=== PATIENT | female | born 1980 | race African-American/Black ===

== ENCOUNTER 2018-07-21 14:17 | Emergency (ER) | payer MEDICAID ==
[~2018-07-21] VITALS: Ht 165.1 cm; Wt 86.2 kg
[2018-07-21 14:27] VITALS: BP 105/75
[2018-07-21] MEDS ORDERED: methylPREDNISolone SOD SUCC 125 MG/2 ML VL IM ONE (15:45)
[2018-07-21] MEDS ORDERED: ALBUTEROL SULF 2.5 MG/0.5ML(0.5%) NEB SOLN NEB ONE (15:45)
[2018-07-21] MEDS ORDERED: IPRATROPIUM BROM 0.5 MG/2.5ML INH SOL NEB ONE (15:45)
== END 2018-07-21 16:30 | disposition home or self-care (01) ==
LOC: ER 14:17
DX: S61.011A Laceration without foreign body of right thumb without damage to nail, initial encounter (principal); R06.2 Wheezing; J45.909 Unspecified asthma, uncomplicated; J01.90 Acute sinusitis, unspecified; X58.XXXA Exposure to other specified factors, initial encounter; Y93.89 Activity, other specified; Y99.8 Other external cause status; Y92.89 Other specified places as the place of occurrence of the external cause
CPT/HCPCS: 71046; 94640; 96372; 99283; J2930; J7611; J7644

== ENCOUNTER 2018-08-03 23:45 | Emergency (ER) | payer MEDICAID ==
[~2018-08-03] VITALS: Ht 165.1 cm; Wt 86.2 kg
[2018-08-04 00:13] VITALS: BP 102/59
[2018-08-04] MEDS ORDERED: cefTRIAXone W LIDOCAINE 1 GM IM IM ONE (02:15)
[2018-08-04] MEDS ORDERED: cefTRIAXone SOD 1,000 MG VL ONE (02:57)
== END 2018-08-04 04:42 | disposition home or self-care (01) ==
LOC: ER 23:45
DX: S80.861A Insect bite (nonvenomous), right lower leg, initial encounter (principal); W57.XXXA Bitten or stung by nonvenomous insect and other nonvenomous arthropods, initial encounter; Y93.89 Activity, other specified; Y99.8 Other external cause status; Y92.89 Other specified places as the place of occurrence of the external cause
CPT/HCPCS: 93971; 96372; 99284; J0696

== ENCOUNTER 2019-02-17 03:32 | Emergency (ER) | payer OTHER, MEDICAID ==
[~2019-02-17] VITALS: Ht 165.1 cm; Wt 88.5 kg
[2019-02-17 06:42] VITALS: BP 93/64
[2019-02-17] MEDS ORDERED: KETOROLAC TROMETH 60MG/2ML VIAL IM ONE (07:15)
== END 2019-02-17 10:08 | disposition home or self-care (01) ==
LOC: ER 03:32
DX: M25.522 Pain in left elbow (principal); H53.8 Other visual disturbances; J02.9 Acute pharyngitis, unspecified
CPT/HCPCS: 73080; 76881; 96372; 99284; J1885

== ENCOUNTER 2021-10-07 19:06 | Emergency (ER) | payer BC, MEDICAID, OTHER ==
[~2021-10-07] VITALS: Ht 165.1 cm; Wt 90.7 kg
[2021-10-07 19:47] VITALS: BP 100/69
[2021-10-07] MEDS ORDERED: SULF400T11 PO (20:30)
== END 2021-10-07 20:48 | disposition home or self-care (01) ==
LOC: ER 19:06
DX: N39.0 Urinary tract infection, site not specified (principal)

== ENCOUNTER 2025-03-29 23:28 | Emergency (ER) | payer OTHER ==
[~2025-03-29] VITALS: Ht 162.6 cm; Wt 77.6 kg
[~2025-03-29 23:28] MED LIST: SULF400T11 PO
[2025-03-29 23:29] VITALS: BP 154/72; PULSE 114; RESP 20; TEMP 97.6; O2SAT 98
[2025-03-30 02:23] LABS: Urine Protein, UAD Negative (Negative)
--- NOTE | 2025-03-30 02:29 | ED.PDOC ---
GI ASSESSMENT HPI Comments 45-year-old female with a history of anemia, and chronic back/neck presents to the ED with a chief complaint of left flank and left-sided abdominal pain with associated radiation to the lower back and nausea, vomiting. Patient states her pain started at approximately 11:00 p.m. last night and has since found no alleviating factors at this time. Patient denies any diarrhea, dysuria, urinary symptoms, headache, chest pain, or any other associated modifying or as her symptoms at this time. Chief Complaint: Abdominal Pain Time Seen by MD: 02:25 Primary Care Provider: MICHELLEK Reviewed Notes: Nurses Notes, Medications, Allergies Allergies: Coded Allergies: NO KNOWN ALLERGIES (Unverified , 07/21/18) Home Meds Active Scripts Dicyclomine Hcl (BENTYL CAPSULE) 10 Mg Cp, 2 CAP PO Q6HP PRN, #30 CAP 11 Refills Prn abdominal pain Prov:LAUREL BUSH MD 03/30/25 Ibuprofen Micronized (Ibuprofen) 800 Mg Tab, 800 MG PO Q8HP PRN, #30 TAB Prn pain. Take with food. Prov:LAUREL BUSH MD 03/30/25 Ondansetron Odt 4MG Tab (ZOFRAN PO) 4 Mg Tb, 4 MG PO TID PRN, #30 TAB Prn nausea/vomiting ODT TAB-DISSOLVE IN MOUTH, THEN SWALLOW Prov:LAUREL BUSH MD 03/30/25 Sulfamethoxazole-Trimethoprim (Bactrim) 1 Tab Tab, 1 TAB PO BID for 3 Days, #6 TAB 0 Refills Prov:DANIELE KELLEY 10/07/21 Information Source: Patient Mode of Arrival: Ambulatory Timing: Hours Duration: Since onset, Hours Prehospital treatment: None Quality: Aching Vomitus: Watery Stool: Normal Severity: Moderate Recent: None Recent Hx of: None Pain Location: LLQ Modifying Factors: Food Associated sign and symptoms: Nausea, Vomiting, Abdominal Pain Past Medical History PAST MEDICAL HISTORY: Anemia Past Medical History (Other): Chronic pain Surgical History: , Hernia 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 Moist mucous membranes.) Neck: Full Range of Motion, Normal Inspection Respiratory: Lungs Clear, No Accessory Muscle Use, No Respiratory Distress, Normal Breath Sounds Cardiovascular: No Edema, No JVD, Regular Rate/Rhythm Breast Exam: Deferred Gastrointestinal: LLQ, Soft, Tenderness Genitalia: Deferred Pelvic: Deferred Rectal: Deferred Extremities: Normal inspection, Normal range of motion, Non-tender, No pedal edema Neurologic: Alert (Oriented x4), Normal Affect, Normal Mood, Other (Ambulatory) Cerebellar Function: NOT DONE Reflexes: NOT DONE Skin: Dry, Normal Color, Warm Lymphatic: NOT DONE Was a procedure done? Was a procedure done?: No GI differential Dx Differential Diagnosis: Diverticular disease, Gastritis/PUD, Gastroenteritis, Hernia, Inflammatory BD, Urinary Obstruction, UTI, Urolithiasis, Dehydration, Electrolyte Imbalance, Food Poisoning, Bacterial, Viral, Kidney Stone X-Ray, Labs, Meds, VS Vital Signs Date Time Temp Pulse Resp B/P (MAP) Pulse Ox O2 Delivery O2 Flow Rate FiO2 03/29/25 23:29 97.6 114 20 154/72 98 97.6 Lab Test 03/30/25 02:19 03/30/25 02:16 Range/Units White Blood Count 4.1 L 4.4-10.8 10^3/uL Red Blood Count 4.35 4.0-5.20 10^6/uL Hemoglobin 14.5 12.2-16.2 g/dL Hematocrit 42.1 36.0-46.0 % Mean Corpuscular Volume 96.8 80.0-100.0 fL Mean Corpuscular Hemoglobin 33.3 H 28.0-32.0 pg Mean Corpuscular Hemoglobin Concent 34.4 32.0-36.0 g/dL Red Cell Distribution Width 13.6 11.8-14.3 % Platelet Count 198 140-450 10^3/uL Mean Platelet Volume 8.8 6.9-10.8 fL Neutrophils (%) (Auto) 45.0 37.0-80.0 % Lymphocytes (%) (Auto) 42.1 10.0-50.0 % Monocytes (%) (Auto) 9.7 0.0-12.0 % Eosinophils (%) (Auto) 2.4 0.0-7.0 % Basophils (%) (Auto) 0.8 0.0-2.0 % Neutrophils # (Auto) 1.8 1.6-8.6 10 ^3/uL Lymphocytes # (Auto) 1.7 0.4-5.4 10 ^3/uL Monocytes # (Auto) 0.4 0-1.3 10 ^3/uL Eosinophils # (Auto) 0.1 0-0.8 10 ^3/uL Basophils # (Auto) 0 0-0.2 10 ^3/uL Nucleated Red Blood Cells 0.0 % Sodium Level 140 136-145 mmol/L Potassium Level 3.9 3.5-5.1 mmol/L Chloride Level 105 98-107 mmol/L Carbon Dioxide Level 28 20-31 mmol/L Anion Gap 7 5-15 Blood Urea Nitrogen 10 9-23 mg/dL Creatinine 0.74 0.550-1.02 mg/dL Glomerular Filtration Rate Calc 103 >90 mL/min BUN/Creatinine Ratio 13.5 10.0-20.0 Serum Glucose 106 74-106 mg/dL Calcium Level 9.2 8.7-10.4 mg/dL Magnesium Level 1.8 1.6-2.6 mg/dL Urine Color Light-yellow Yellow Urine Clarity Clear Clear Urine pH 6.5 5.0-9.0 Urine Specific [place] 1.020 1.001-1.035 Urine Protein Negative Negative Urine Ketones Negative Negative Urine Blood Negative Negative /uL Urine Nitrite Negative Negative Urine Bilirubin Negative Negative Urine Urobilinogen 2 H Negative mg/dL Urine Leukocyte Esterase Negative Negative /uL Urine RBC 2 0 - 4 /hpf Urine Microscopic WBC < 1 0-5 /HPF Urine Squamous Epithelial Cells Few <5 /hpf Urine Bacteria None seen None Seen /hpf Urine Mucus Few None Seen Urine Glucose Normal Normal mg/dL PROCEDURE(s): ABPL - CT AB PEL WO CON-NO ORAL OR IV REASON: L flank/abd pain ORDER NUMBER(s): [id number], ACCESSION NUMBER(s): [id number] Exam: CT CT AB PEL WO CON-NO ORAL OR IV History: L flank/abd pain Comparison Study: None TECHNIQUE: Multidetector CT of the abdomen and pelvis was performed from lung bases to pubic symphysis. Imaging was performed without IV contrast. Axial, coronal and sagittal multiplanar reformats were obtained from the axial data set by the technologist. Radiation optimization: All CT scans at this facility use at least one of these dose optimization techniques: automated exposure control mA and/or kV adjustment per patient size (includes targeted exams where dose is matched to clinical indication) or iterative reconstruction. Radiation Dose Information: CT Dose: Dose-length product is 555.34 mGy*cm FINDINGS: Evaluation of solid organs is limited due to lack of intravenous contrast use. Imaged portions of the lung bases appear unremarkable. There is a small hiatal hernia. Liver, spleen, gallbladder, pancreas, and adrenal glands appear unremarkable. The kidneys appear symmetric without hydronephrosis or nephrolithiasis. 0.5 cm calculus is noted in the dependent portion of the left urinary bladder which may represent recently passed calculus. No evidence of bowel obstruction or focal bowel wall thickening. Moderate intracolonic stool. The appendix appears normal. No suspicious osseous lesion. IMPRESSION: 1. No acute abdominal or pelvic finding. 2. 0.5 cm calculus in the dependent portion of the left urinary bladder may represent recently passed nephrolith. X-Ray, Labs, Meds, VS Comment 45-year-old female with a history of anemia and chronic pain complaining of left-sided abdominal pain, nausea and vomiting Vitals remarkable for heart rate 114, BP 154/72 Exam remarkable left lower palpation Rhythm strip independently interpreted by me: Sinus tach, rate 114, no ectopy. CT abdomen and pelvis IMPRESSION: 1. No acute abdominal or pelvic finding. 2. 0.5 cm calculus in the dependent portion of the left urinary bladder may represent recently passed nephrolith. CBC, metabolic panel and UA unremarkable for any abnormality of acute significance Patient treated with the following in the ED: 1 L 0.9 normal saline IV bolus, morphine 4 mg IV, Zofran 4 mg IV, Protonix 40 mg IV On re-evaluation, patient states pain has improved. Vitals were stable. She tolerated p.o. fluids. Repeat abdominal exam was benign. Hospitalization was considered, however patient had rapid improvement of symptoms with treatment in the ED, and I no longer feel hospitalization is necessary. Patient now appears stable for discharge with close outpatient follow-up with her primary physician. Rx Zofran, ibuprofen Time of 1ST Reevaluation: :55 Reevaluation 1ST: Unchanged Patient Education/Counseling: Diagnosis, Treatment, Need For Follow Up Family Education/Counseling: No Family Present SEPSIS Sepsis Screen Date sepsis recognized/suspect: Mar 29, 2025 Time Sepsis recognized/suspect: 2330 Recent Procedure: No On Antibiotic Therapy: No Respiratory Rate >20: No Heart Rate >90: No Temp<36 C (96.8 F) or >38.3 C: No SBP <90 or MAP <65 mmHG: No New Acute Mental Status Change: No Is the patient on CPAP, BIPAP,: No Physician Orders Ct Ab Pel Wo Con-No Oral Or Iv (03/30/25 03:46) Sodium Chloride 0.9% (03/30/25 04:45) Ondansetron Hcl (Zofran) (03/30/25 04:45) Morphine Sulfate Injection (03/30/25 04:45) Pantoprazole (Protonix) (03/30/25 04:45) Vital Signs Date Time Temp Pulse Resp B/P (MAP) Pulse Ox O2 Delivery O2 Flow Rate FiO2 03/29/25 23:29 97.6 114 20 154/72 98 97.6 Laboratory Tests Test 03/30/25 02:19 White Blood Count 4.1 10^3/uL (4.4-10.8) L Departure 1 Departure Time of Disposition: 06:00 Impression: Primary Impression: Abdominal pain Additional Impressions: Nausea and vomiting Ureteral colic Calculus in bladder Disposition: 01 HOME / SELF CARE / HOMELESS Condition: Stable Additional Instructions: Your blood tests were unremarkable. Your urine test was unremarkable. Your CT scan showed you may have recently passed a kidney stone. I have enclosed the report below. I have prescribed medication for your symptoms. Follow-up with your primary doctor in 1-2 days. Return to ER for persistent or worsening symptoms. [place] [id number] Ph: [phone] DIAGNOSTIC IMAGING Diagnostic Imaging Report : [id number] Signed PATIENT: YASMANY LEE ACCT: [id number] UNIT: [id number] : 1980 LOC: ER ROOM / BED: / AGE / SEX: 45 / F ADM STATUS: REG ER SERVICE [id number] ORDERING PHYSICIAN: LAUREL BUSH MD PROCEDURE(s): ABPL - CT AB PEL WO CON-NO ORAL OR IV REASON: L flank/abd pain ORDER NUMBER(s): [id number], ACCESSION NUMBER(s): [id number] Exam: CT CT AB PEL WO CON-NO ORAL OR IV History: L flank/abd pain Comparison Study: None TECHNIQUE: Multidetector CT of the abdomen and pelvis was performed from lung bases to pubic symphysis. Imaging was performed without IV contrast. Axial, coronal and sagittal multiplanar reformats were obtained from the axial data set by the technologist. Radiation optimization: All CT scans at this facility use at least one of these dose optimization techniques: automated exposure control mA and/or kV adjustment per patient size (includes targeted exams where dose is matched to clinical indication) or iterative reconstruction. Radiation Dose Information: CT Dose: Dose-length product is 555.34 mGy*cm FINDINGS: Evaluation of solid organs is limited due to lack of intravenous contrast use. Imaged portions of the lung bases appear unremarkable. There is a small hiatal hernia. Liver, spleen, gallbladder, pancreas, and adrenal glands appear unremarkable. The kidneys appear symmetric without hydronephrosis or nephrolithiasis. 0.5 cm calculus is noted in the dependent portion of the left urinary bladder which may represent recently passed calculus. No evidence of bowel obstruction or focal bowel wall thickening. Moderate intracolonic stool. The appendix appears normal. No suspicious osseous lesion. IMPRESSION: 1. No acute abdominal or pelvic finding. 2. 0.5 cm calculus in the dependent portion of the left urinary bladder may represent recently passed nephrolith. e-Prescriptions Ibuprofen Micronized (Ibuprofen) 800 Mg Tab 800 MG PO Q8HP PRN, #30 TAB Prn pain. Take with food. Prov: LAUREL BUSH MD 03/30/25 Ondansetron Odt 4MG Tab (ZOFRAN PO) 4 Mg Tb 4 MG PO TID PRN, #30 TAB Prn nausea/vomiting ODT TAB-DISSOLVE IN MOUTH, THEN SWALLOW Prov: LAUREL BUHS MD 03/30/25 Discharged With: Relative Critical Care Note Critical Care Time?: No Stability Stability form required: No Heart Score Heart Score: Heart Score Response (Comments) Value History N/A 0 EKG N/A 0 Age N/A 0 Risk Factors N/A 0 Troponin N/A 0 Total 0 I personally scribed for LAUREL BUSH MD ([email or web address]) on 03/30/25 at 02:29. Electronically submitted by Lio Murillo ([email or web address]). LAUREL BUSH MD Mar 30, 2025 02:29
[2025-03-30 02:37] LABS: Hematocrit 42.1 % (36.0-46.0); Hemoglobin 14.5 g/dL (12.2-16.2); Mean Corpuscular Hemoglobin 33.3 pg (28.0-32.0); Mean Corpuscular Volume 96.8 fL (80.0-100.0); Nucleated Red Blood Cells % 0.0 %
[2025-03-30 02:51] LABS: Anion Gap 7 (5-15); Carbon Dioxide 28 mmol/L (20-31); Chloride 105 mmol/L (98-107); Potassium 3.9 mmol/L (3.5-5.1); Sodium 140 mmol/L (136-145)
[2025-03-30 02:52] LABS: Calcium 9.2 mg/dL (8.7-10.4)
[2025-03-30 02:57] LABS: BUN/Creatinine Ratio 13.5 (10.0-20.0); Blood Urea Nitrogen 10 mg/dL (9-23); Glucose 106 mg/dL (74-106); Magnesium 1.8 mg/dL (1.6-2.6)
--- NOTE | 2025-03-30 04:34 | DVH ---
Exam: CT CT AB PEL WO CON-NO ORAL OR IV History: L flank/abd pain Comparison Study: None TECHNIQUE: Multidetector CT of the abdomen and pelvis was performed from lung bases to pubic symphysi s. Imaging was performed without IV contrast. Axial, coronal and sagittal multiplanar reformats were obtained from the axial data set by the technologist. Radiation optimization: All CT scans at this facility use at least one of these dose optimization vivian hniques: automated exposure control mA and/or kV adjustment per patient size (includes targeted exam s where dose is matched to clinical indication) or iterative reconstruction. Radiation Dose Information: CT Dose: Dose-length product is 555.34 mGy*cm FINDINGS: Evaluation of solid organs is limited due to lack of intravenous contrast use. Imaged portions of the lung bases appear unremarkable. There is a small hiatal hernia. Liver, spleen, gallbladder, pancreas, and adrenal glands appear unremarkable. The kidneys appear symm etric without hydronephrosis or nephrolithiasis. 0.5 cm calculus is noted in the dependent portion of the left urinary bladder which may represent recently passed calculus. No evidence of bowel obstruction or focal bowel wall thickening. Moderate intracolonic stool. The rao endix appears normal. No suspicious osseous lesion. IMPRESSION: 1. No acute abdominal or pelvic finding. 2. 0.5 cm calculus in the dependent portion of the left urinary bladder may represent recently passed nephrolith.
[2025-03-30] MEDS ORDERED: DICY10CA PO (04:40)
[2025-03-30] MEDS ORDERED: IBUP-1455 PO (04:40)
[2025-03-30] MEDS ORDERED: ZOFR4T PO (04:40)
[2025-03-30] MEDS ORDERED: PANTOPRAZOLE 40 MG/10 ML VIAL INJ IV ONE (04:45)
[2025-03-30] MEDS ORDERED: ONDANSETRON HCL 4 MG/2 ML VIAL IV ONE (04:45)
[2025-03-30] MEDS ORDERED: MORPHINE SULFATE 4 MG/ML SYR/VIAL IV ONE (04:45)
[2025-03-30] MEDS ORDERED: SODIUM CHLORIDE 0.9% 1,000 ML IV ONE (04:45)
== END 2025-03-30 05:39 | disposition left against medical advice (07) ==
LOC: ER 23:28
DX: N21.0 Calculus in bladder (principal); N23 Unspecified renal colic; D64.9 Anemia, unspecified; A41.9 Sepsis, unspecified organism; Z98.890 Other specified postprocedural states; Z79.899 Other long term (current) drug therapy
CPT/HCPCS: 36415; 74176; 80048; 81001; 83735; 85025